=== PATIENT | male | born 1960 | race Caucasian/White ===

== ENCOUNTER 2019-09-22 10:01 | Outpatient (CLI) | payer OTHER, SELFPAY ==
--- NOTE | ~2019-09-22 | XR_ITS ---
[XR ribs BI 3V w CXR 2V ] INDICATION: Bilateral rib pain TECHNIQUE: Frontal projection of the upper ribs, frontal projection of the lower ribs, oblique projec tion of all the ribs, frontal inspiratory chest x-ray for interpretation. FINDINGS: There are no displaced rib fractures identified. There are no soft tissue abnormality see n. The lungs are clear. IMPRESSION: 1:No displaced rib fractures. Reviewed, dictated and finalized at location A.
== END 2019-09-22 10:02 | disposition home or self-care (01) ==
PROVIDERS: PCP Family Medicine; Visit Provider Nurse Practitioner Family
DX: R07.81 Pleurodynia (principal)
CPT/HCPCS: 71046; 71110

== ENCOUNTER 2019-12-07 08:02 | Outpatient (CLI) | payer OTHER, SELFPAY ==
[2019-12-07 09:29] LABS: Basophils Absolute Auto 0.1 K/mm3 (0.0-0.1); Basophils Percent Auto 1.2 % (0.2-1.2); Eosinophils Absolute Auto 0.3 K/mm3 (0-0.3); Eosinophils Percent Auto 4.2 % (0-4.4); Hematocrit 41.1 % (42.0-52.0); Hemoglobin 13.6 g/dL (14.0-18.0); Immature Granulocyte Absolute 0.02 K/mm3 (0.00-0.031); Immature Granulocyte Percent A 0.3 % (0-0.5); Lymphocytes Absolute Auto 2.75 K/mm3 (0.9-3.2); Lymphocytes Percent Auto 42.4 % (18.3-44.2); Mean Corpuscular HGB Conc 33.1 g/dl (32-36); Mean Corpuscular Hemoglobin 30.6 pg (26-34); Mean Corpuscular Volume 92.4 fl (80-100); Monocytes Absolute Auto 0.4 K/mm3 (0.1-0.6); Monocytes Percent Auto 6.8 % (2.6-8.5); Neutrophils Absolute Auto 2.9 K/mm3 (1.3-6.7); Neutrophils Percent Auto 45.1 % (45.5-73.1); Platelet Count Result 231 k/mm3 (150-375); Red Blood Count 4.45 M/mm3 (4.6-6.20); Red Cell Distribution Width 12.7 % (11.5-14.5); White Blood Count 6.5 K/mm3 (4.5-10.0)
[2019-12-07 09:43] LABS: Alanine Aminotransferase 33 U/L (4-50); Albumin Level 4.7 g/dL (3.5-5.1); Alkaline Phosphatase 57 U/L (38-126); Aspartate Amino Transferase 32 U/L (17-59); Bilirubin,Total 0.5 mg/dL (0.2-1.3); Blood Urea Nitrogen 25 mg/dL (9-20); Calcium 9.6 mg/dL (8.4-10.2); Carbon Dioxide 29 mmol/L (22-30); Chloride 101 mmol/L (98-107); Cholesterol 157 mg/dL (0-200); Estimated Glomerular Filt Rate > 60; Glucose 177 mg/dL (75-110); HDL Direct 41 mg/dL; Hemoglobin A1C 6.6 % (<5.7); Potassium 4.3 mmol/L (3.4-5.0); Sodium 139 mmol/L (137-145); Triglycerides 115 mg/dL (<150)
[2019-12-07 09:56] LABS: LDL Cholesterol Direct 82 mg/dL
[2019-12-07 10:11] LABS: Prostate Specific Antigen 0.9 ng/mL (< OR = 4.0)
[2019-12-07 11:56] LABS: MALB Creatinine Ratio < 4.7 mg/g (0-30); Microalbumin Urine Random < 6.0 mg/L (0-16.7)
== END 2019-12-07 08:03 | disposition home or self-care (01) ==
PROVIDERS: PCP Family Medicine; Visit Provider Family Medicine
DX: Z12.5 Encounter for screening for malignant neoplasm of prostate (principal); E11.9 Type 2 diabetes mellitus without complications; N28.1 Cyst of kidney, acquired; K76.0 Fatty (change of) liver, not elsewhere classified; E78.5 Hyperlipidemia, unspecified
CPT/HCPCS: 36415; 80048; 80061; 80076; 82043; 83036; 84153; 85025; G0103

== ENCOUNTER 2020-03-26 06:51 | Outpatient (NON) | payer OTHER, SELFPAY ==
[2020-03-26 17:22] LABS: SARS-CoV-2 RNA PCR Positive
== END 2020-03-26 06:52 ==
LOC: ANHCOVIDDT 06:59
PROVIDERS: PCP Family Medicine; Visit Provider Nurse Practitioner Family
DX: U07.1 COVID-19 (principal)
CPT/HCPCS: 87635; C9803; U0003

== ENCOUNTER 2020-04-18 10:17 | Observation (INO) | payer OTHER, SELFPAY ==
[2020-04-18] VITALS (8 sets, daily range): BP systolic 110–125; BP diastolic 66–79; PULSE 73–103; RESP 18; TEMP 36.7–37; O2SAT 97–99
--- NOTE | ~2020-04-18 | CT_ITS ---
EXAMINATION: CTA chest PE protocol DATE: 04/18/2020 11:55 INDICATION: Shortness of breath TECHNIQUE: Computed tomography angiography (CTA) of the chest was performed with 100 mL Omnipaque-350 intravenous contrast timed to evaluate the pulmonary arteries. Coronal maximum intensity projection 3D-reconstructions were created by the technologist. Automated exposure control and iterative reconst ruction technique were employed. Exam dose: 276.14 mGy-cm total exam DLP. COMPARISON: 09/22/2019 PA and lateral chest FINDINGS: There is diagnostic contrast enhancement of the pulmonary arteries although the peripheral pulmonary arteries are not optimally demonstrated due to motion. There is intraluminal pulmonary embo lism involving the right upper lobe. Pneumomediastinum is noted. There is a phlebolith or perhaps minimal focal pneumothorax along the med ial left upper lobe. No pneumothorax is evident otherwise. There are extensive patchy bilateral upper lower lobe and middle lobe infiltrates. Heart size is within normal range. No pericardial or pleural effusion. 2.2 cm probable upper pole left renal cyst. Normal morphology of the adrenal glands. Small sliding hiatal hernia. Degenerative changes of the cervical and thoracic spine. No suspicious osteolytic or osteoblastic les ions are noted. IMPRESSION: Right upper lobe pulmonary embolism Pneumomediastinum Extensive patchy bilateral pulmonary infiltrates Findings including right upper lobe pulmonary emphysema reported to Misael in the emergency room by Jani Hernández by telephone on 04/18/2020 at 1218 hours. Reviewed, dictated and finalized at Location A. Reviewed, dictated and finalized at location A. GUMMER IMPRESSION: Right upper lobe pulmonary embolism Pneumomediastinum Extensive patchy bilateral pulmonary infiltrates Findings including right upper lobe pulmonary emphysema reported to Misael in [facility] emergency room by Dr. Hernández by telephone on 04/18/2020 at 1218 hours.
--- NOTE | ~2020-04-18 | US_ITS ---
US venous doppler [facility] DATE: 04/19/2020 14:20 INDICATION: Right upper lobe pulmonary embolism TECHNIQUE: Real-time imaging and color flow imaging and Doppler analysis of the veins of the lower ex tremities COMPARISON: 04/10/2020 CT pulmonary scan FINDINGS: The greater saphenous veins are patent. There is spontaneous and phasic flow and normal aug mentation and color flow signal of the right common femoral, femoral, popliteal, posterior tibial vei ns. Thrombus is identified in the right peroneal vein. There is spontaneous and phasic flow and normal augmentation and color flow signal in left common fem oral artery. Thrombus however is identified in the left femoral, popliteal, posterior tibial and rukhsana delia veins. IMPRESSION: Bilateral deep venous thrombosis Reviewed, dictated and finalized at Location A. Reviewed, dictated and finalized at location A. AURANT FRONT MANAGER
--- NOTE | 2020-04-18 10:35 | ECG_ITS ---
Measurements Intervals [place] Rate: 84 P: 39 CT: 153 QRS: -11 QRSD: 86 T: 30 QT: 351 QTc: 417 Interpretive Statements SINUS RHYTHM DELAYED PRECORDIAL R/S TRANSITION BASELINE ARTIFACT- I, II, III, AVR, AVL, AVF, V1-V2 BORDERLINE ECG Electronically Signed On 04-18-2020 16:23:23 PRODUCTION GEAR CUTTER by Mario Hopper D.O.
[2020-04-18 11:07] LABS: Basophils Absolute Auto 0.1 K/mm3 (0.0-0.1); Basophils Percent Auto 1.2 % (0.2-1.2); Eosinophils Absolute Auto 0.4 K/mm3 (0-0.3); Eosinophils Percent Auto 4.1 % (0-4.4); Hematocrit 42.3 % (42.0-52.0); Hemoglobin 13.7 g/dL (14.0-18.0); Immature Granulocyte Absolute 0.15 K/mm3 (0.00-0.031); Immature Granulocyte Percent A 1.8 % (0-0.5); Mean Corpuscular HGB Conc 32.4 g/dl (32-36); Mean Corpuscular Hemoglobin 29.7 pg (26-34); Mean Corpuscular Volume 91.6 fl (80-100); Mean Platelet Volume 10.5 fl (7.4-10.4); Monocytes Absolute Auto 0.7 K/mm3 (0.1-0.6); Monocytes Percent Auto 8.3 % (2.6-8.5); Neutrophils Absolute Auto 4.9 K/mm3 (1.3-6.7); Neutrophils Percent Auto 57.6 % (45.5-73.1); Platelet Count Result 411 k/mm3 (150-375); Red Blood Count 4.62 M/mm3 (4.6-6.20); Red Cell Distribution Width 13.2 % (11.5-14.5); White Blood Count 8.5 K/mm3 (4.5-10.0)
--- NOTE | 2020-04-18 11:11 | ED.GENADULT ---
HPI - General Adult General Chief complaint: Weakness Stated complaint: weakness Time Seen by Provider: 04/18/20 10:22 Source: patient Mode of arrival: ambulatory Limitations: no limitations History of Present Illness HPI narrative: Patient 60-year-old male who presents to emergency department for evaluation of worsening dyspnea that occurred last night patient is currently on 1 L of oxygen at home has been using nebulizers and has been on this treatment since developing Covid he has been cleared by primary care for his Covid infection but continues to have dyspnea occasionally a productive cough of phlegm and requiring oxygen patient denies any chest pain lightheadedness dizziness nausea vomiting. . On arrival patient in no distress in the room resting comfortably. Symptoms are worse with activity. Patient has been given prophylactic Lovenox until the last couple of days. Patient does not have a history of PE Related Data Home Medications Medication Instructions Recorded Confirmed pantoprazole 40 mg PO QAM 04/18/20 Allergies Allergy/AdvReac Type Severity Reaction Status Date / Time Sulfa (Sulfonamide Allergy Unknown Rash Verified 04/18/20 10:24 Antibiotics) Review of Systems Review of Systems: All systems reviewed & are unremarkable except as noted in HPI and below PMFSH Past Medical History Medical History COVID-19 Fatty liver disease, nonalcoholic Hyperlipidemia, unspecified Hypoxia Leg weakness, bilateral Renal cyst Type 2 diabetes mellitus without complication, without long-term current use of insulin Family History Family History Other Diabetes mellitus Family history of pancreatic cancer Social History Social History Smoking status: Never smoker Alcohol intake: never Gender identity (if verbalized by the patient): Male Exam Narrative: Exam Narrative: GENERAL: Well-appearing, well-nourished, and in no acute distress. HEAD: Normocephalic, atraumatic. EYES: PERRLA and EOMI. ENT: Nares clear, no rhinorrhea or epistaxis. Mucous membranes moist. CHEST: Clear to auscultation. No respiratory distress. No wheezes rales or rhonchi HEART: Regular rate and rhythm. No murmur heard. Normal peripheral pulses. ABDOMEN: Soft, nontender, nondistended EXTREMITIES: Normal range of motion. No edema. SKIN: Warm, dry, no rash. NEURO: No focal deficits. Alert and oriented x3. Cranial nerves II through XII grossly intact PSYCH: Normal mood and affect. Course Consultations Consultation #1: Discussed case with Dr. Us in the radiologist who noted that the patient can be kept in [place] with a small pneumomediastinum patient is to be started on heparin and will be consulted on Date: 04/18/20 Time: 13:38 Consultation #2: Discussed case with hospitalist Alexandra who will discuss the case with her attending on whether or not the patient can be kept in [place] Date: 04/18/20 Time: 13:39 Consultation #3: Spoke with Dr. Sun cardiothoracic surgeon at [facility] in note patient can be kept at [place] does not warrant transfer Also spoke with cardiothoracic at [facility] who recommended the patient can stay as well with no further intervention needed at this time Date: 04/18/20 Time: 15:35 Vital Signs Vital signs: Vital Signs Temperature 98.2 F 04/18/20 10:20 Pulse Rate 103 H 04/18/20 10:20 Respiratory Rate 18 04/18/20 10:20 Blood Pressure 125/79 04/18/20 10:20 Pulse Oximetry 97 04/18/20 10:20 Temperature 98.2 F 04/18/20 10:20 Pulse Rate 73 04/18/20 13:49 Respiratory Rate 18 04/18/20 13:49 Blood Pressure 122/77 04/18/20 13:49 Pulse Oximetry 99 04/18/20 13:49 Medical Decision Making [facility] Narrative Medical decision making narrative: Patient was found to have pulmonary embolus pneumomediast
[2020-04-18 11:18] LABS: INR 0.9; Prothrombin Time 12.9 Seconds (11.1-14.7)
[2020-04-18 11:22] LABS: Alanine Aminotransferase 78 U/L (4-50); Albumin Level 4.1 g/dL (3.5-5.1); Alkaline Phosphatase 104 U/L (38-126); Anion Gap 6 mmol/L (8-16); Aspartate Amino Transferase 37 U/L (17-59); Bilirubin,Total 0.7 mg/dL (0.2-1.3); Blood Urea Nitrogen 20 mg/dL (9-20); Calcium 9.9 mg/dL (8.4-10.2); Carbon Dioxide 35 mmol/L (22-30); Chloride 95 mmol/L (98-107); Estimated CRCL calculation 80 ml/min; Estimated Glomerular Filt Rate > 60; Glucose 258 mg/dL (75-110); Potassium 4.3 mmol/L (3.4-5.0); Sodium 136 mmol/L (137-145)
[2020-04-18] MEDS: SODIUM CHLORIDE 0.9% IV 1,000 ML 999 ML IV CONT (11:32)
[2020-04-18 11:33] LABS: NT Pro B Type Natriuretic Pept 17 PG/ML (5-100); Troponin I < 0.012 ng/mL (0.000-0.034)
[2020-04-18 12:49] LABS: Alveolar/Arterial O2 Gradient 46.7 mmHg; Base Excess ABG 5.2 mEq/l (+/-2.0); Carboxyhemoglobin 0.8 % THb (0-2.0); Fractional Inspired Oxygen 24 %; HCO3 ABG 29.8 mEq/l (22.0-26.0); Methemoglobin ABG 0.2 %THb (0-1.5); Oxygen Content ABG 16.3 %vol (16.0-22.0); Oxygen Saturation ABG 95.1 % (95.0-100.0); Oxyhemoglobin 93.8 % THb (90.0-100.0); PO2 ABG 72.1 mmHg (80.0-100.0); Reduced Hemoglobin 5.2 %THb (0-5.0); Total Hemoglobin 12.3 g/dL (12.0-18.0); pH ABG 7.449 (7.350-7.450)
[2020-04-18 12:50] LABS: Device NASAL CANNULA; Site Drawn LEFT BRACHIAL
[2020-04-18] MEDS: HEPARIN SODIUM 5,000 UNITS/ML VIAL 6000 UNITS IV PUSH (13:33)
[2020-04-18] MEDS: HEPARIN SOD/D5W 100 UNITS/ML 25,000 UNITS/250 ML BAG 14 UNITS IV CONT (13:35)
[2020-04-18 13:44] LABS: Glucose Point of Care 138 (65-105)
--- NOTE | 2020-04-18 16:00 | PM.IMHP ---
H&P: HPI History of Present Illness Date/Time: 04/18/20 16:00 Chief complaint: Shortness of breath. Narrative: Rosey Hollingsworth is a 60-year-old male with type 2 diabetes mellitus and hypertension who presented to the emergency department earlier today via private vehicle from for evaluation of shortness of breath. On March 23, 2020 he developed URI symptoms including sore throat, nonproductive cough, congestion, and fever and he tested positive for COVID-19 on 03/26/2020. He had a virtual visit with his primary care provider on 04/07 with reports that he was still feeling bad and was becoming increasingly hypoxic, with an SpO2 between 83 to 85%. He was given a prescription for home oxygen and was started on dexamethasone and Lovenox 40 mg q.day for 7 days. He finished taking the Lovenox I believe yesterday and he has is oxygen weaned down to 1 L. Unfortunately last night he had what sounds like a pretty significant coughing fit where he became increasingly short of breath with hypoxia. He spoke with his doctor today and they thought perhaps he had a mucus plug but they referred him to the emergency department to rule out blood clot. He was indeed found to have a right upper lobe pulmonary embolism with findings of pneumomediastinum as well, and he is being admitted in this setting. The ED provider spoke with a cardiothoracic surgeon in [place] regarding his case, and they note having multiple patient's with pneumomediastinum secondary to COVID and feel this is self-limiting and had no other recommendations. At the time my evaluation he feels better and is not short of breath although he is still frustrated that he continues to have a cough which is productive of clear phlegm. He no longer has fever, chills, or sweats. He denies chest pain and pleuritic pain. No palpitations, orthopnea, PND, or lower extremity edema. He denies calf pain and tenderness. No history of venous thromboembolism. No nausea, vomiting, or diarrhea. Review of Systems Review of Systems: Narrative: Twelve systems were reviewed with pertinent positives and negatives as per HPI. Except as documented, all other systems were reviewed and are negative. [facility] Past Medical History Medical History (Updated 04/18/20 @ 23:37 by Alexandra Bass PA-C) COVID-19 (~03/26/20) Fatty liver disease, nonalcoholic Gastro-esophageal reflux Hyperlipidemia, unspecified Hypertension Renal cyst Type 2 diabetes mellitus without complication, without long-term current use of insulin Surgical History Surgical History (Updated 04/18/20 @ 23:34 by Alexandra Bass PA-C) History of sinus surgery History of tonsillectomy Family History Family History Other Diabetes mellitus Family history of pancreatic cancer Social History Social History (Updated 04/18/20 @ 23:34 by Alexandra Bass PA-C) Social History: Surrogate decision maker: Rebecca Hollingsworth, . Code status: Full code. Smoking packs per day: 2 Smoking cigarettes per day: 40.0 Years smoked: 20 Smoking pack-years: 40.00 Smoking status: Former smoker Tobacco type: cigarettes Second hand tobacco smoke exposure: No Alcohol intake: never Substance use: never Additional living arrangements comments: Lives in [place] with his . 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 Gender identity (if verbalized by the patient): Male Sexual Orientation (if Verbalized by the Patient): Straight or Heterosexual Spiritual care concerns: No Meds Home Medications and Allergies Home Medications Medication Instructions Recorded Confirmed Type diclofenac sodium 75 mg 75 mg PO BID #180 tablet 01/02/20 04/18/20 Rx tablet,delayed release simvastatin 40 mg tablet 40 mg PO DAILY #90 tablet 01/02/20 04/18/20 Rx albuterol sulfate 90 mcg/actuation 1 inh INHALATION Q4H PRN #8.5 g 03/30/20 04/18/20 Rx aerosol i
--- NOTE | 2020-04-18 16:52 | PC.NURSE ---
This patient, Rosey Hollingsworth, was admitted to 3 [facility] Surg Room 323-01. Patient/family oriented to hospital policies and general routines including ID bracelet, bed and alarms, visiting hours, pain management, procedures, bathroom and other care routines, personal items, smoking policy, room service/diet, and visiting hours. Information on how to activate the Rapid Response Team has been discussed. Patient/Family are encouraged to report perceived risks to care and to ask questions if they do not understand what they are told or what they should do.
[2020-04-18 19:58] LABS: Glucose Point of Care 235 (65-105)
[2020-04-18 20:30] LABS: Partial Thromboplastin Time 76.8 SECONDS (22.3-36.8)
[2020-04-19] VITALS (7 sets, daily range): BP systolic 101–112; BP diastolic 58–69; PULSE 68–81; RESP 18–20; TEMP 36.3–37.1; O2SAT 1–100
[2020-04-19 03:36] LABS: Basophils Absolute Auto 0.1 K/mm3 (0.0-0.1); Basophils Percent Auto 1.5 % (0.2-1.2); Eosinophils Absolute Auto 0.5 K/mm3 (0-0.3); Eosinophils Percent Auto 5.5 % (0-4.4); Hematocrit 36.7 % (42.0-52.0); Hemoglobin 11.8 g/dL (14.0-18.0); Immature Granulocyte Absolute 0.15 K/mm3 (0.00-0.031); Immature Granulocyte Percent A 1.8 % (0-0.5); Lymphocytes Absolute Auto 3.24 K/mm3 (0.9-3.2); Lymphocytes Percent Auto 37.9 % (18.3-44.2); Mean Corpuscular HGB Conc 32.2 g/dl (32-36); Mean Corpuscular Hemoglobin 29.4 pg (26-34); Mean Corpuscular Volume 91.5 fl (80-100); Mean Platelet Volume 10.7 fl (7.4-10.4); Monocytes Absolute Auto 0.8 K/mm3 (0.1-0.6); Monocytes Percent Auto 9.3 % (2.6-8.5); Neutrophils Absolute Auto 3.8 K/mm3 (1.3-6.7); Platelet Count Result 354 k/mm3 (150-375); Red Blood Count 4.01 M/mm3 (4.6-6.20); Red Cell Distribution Width 13.1 % (11.5-14.5); White Blood Count 8.6 K/mm3 (4.5-10.0)
[2020-04-19 03:41] LABS: Anion Gap 0 mmol/L (8-16); Blood Urea Nitrogen 17 mg/dL (9-20); Calcium 9.1 mg/dL (8.4-10.2); Carbon Dioxide 37 mmol/L (22-30); Chloride 99 mmol/L (98-107); Estimated CRCL calculation 81 ml/min; Estimated Glomerular Filt Rate > 60; Glucose 165 mg/dL (75-110); Magnesium 2.2 mg/dL (1.6-2.3); Partial Thromboplastin Time 77.9 SECONDS (22.3-36.8); Potassium 4.4 mmol/L (3.4-5.0); Sodium 136 mmol/L (137-145)
[2020-04-19 07:55] LABS: Glucose Point of Care 177 (65-105)
[2020-04-19] MEDS: HEPARIN SOD/D5W 100 UNITS/ML 25,000 UNITS/250 ML BAG 14 UNITS IV CONT (08:56)
[2020-04-19] MEDS: SIMVASTATIN 20 MG TABLET 40 MG PO (09:01)
[2020-04-19] MEDS: DICLOFENAC SOD 75 MG TABLET.EC PO ×2 (09:02→17:01)
[2020-04-19] MEDS: PANTOPRAZOLE 40 MG TABLET PO (09:02)
[2020-04-19 10:41] LABS: Hemoglobin A1C 7.3 % (<5.7)
--- NOTE | 2020-04-19 11:35 | PM.IMPN ---
Progress Note: A&P Assessment and Plan (1) Pulmonary embolism on right: Code(s): I26.99 - Other pulmonary embolism without acute cor pulmonale Status: Acute Assessment and Plan: Transition from heparin gtt to Eliquis. Discussed case with Dr Luong, cardiology. CARSON lower extremity DVTs identified. Echocardiogram has been ordered. (2) COVID-19: Onset Date: ~03/26/20 Code(s): U07.1 - COVID-19 Status: Acute Assessment and Plan: COVID + 03/26/20. Has been working with PCP for outpatient treatment including home oxygen (1L/min day and night), dexamethasone, and Lovenox 40mg daily. Patient continues with hypoxia and nonproductive cough. (3) Pneumomediastinum: Code(s): J98.2 - Interstitial emphysema Status: Acute Assessment and Plan: Noted on imaging. ED provider consulted CT surgery at tertiary care who recommended this is likely to be self-limiting and given his hemodynamic stability, does not require further intervention at this time unless his status were to change. (4) Bilateral pulmonary infiltrates on chest x-ray: Code(s): R91.8 - Other nonspecific abnormal finding of lung field Status: Acute Assessment and Plan: Suspect secondary to COVID-19. See above. (5) Type 2 diabetes mellitus without complication, without long-term current use of insulin: Code(s): E11.9 - Type 2 diabetes mellitus without complications Status: Acute Assessment and Plan: Hgb A1c 7.3%. His home metformin is held on the basis of having contrast for CTA. Monitor with Accu-cheks and cover with SSI. Subjective Date/time seen: 04/19/20 11:15 Interval history: Mr. Hollingsworth is a pleasant 60yo M with acute respiratory failure, recent COVID-19 pneumonia admitted for pulmonary embolism. He has significant nonproductive cough. He denies chest pain. Denies shortness of breath at rest but walking gets him winded and fatigued easily. No nausea or vomiting. Review of Systems Review of Systems: All systems reviewed & are unremarkable except as noted in HPI and below Exam Narrative: Exam Narrative: General: Male resting comfortably sitting in bed in no acute distress. HEENT: Normocephalic, EOMI, oral mucosa moist. Cardiovascular: Rate and rhythm are regular. Respiratory: Decreased breath sounds CARSON. Respirations even and nonlabored. Nonproductive coughing fit noted. Abdomen: Soft, non-tender, non-distended, bowel sounds present. Extremities: Peripheral pulses intact. No edema, erythema. Negative Dalton's sign CARSON. Neuro: No focal neurological deficits. Speech is clear. Objective Data Vital Signs Vital Signs: Last Vital Signs Temp 97.9 F 04/19/20 16:00 Pulse 70 04/19/20 16:00 Resp 18 04/19/20 16:00 BP 101/63 04/19/20 16:00 Pulse Ox 99 04/19/20 16:00 Intake/Output Intake/Output: Intake & Output 04/16/20 04/17/20 04/18/20 04/19/20 23:59 23:59 23:59 23:59 Intake Total 1460 650 Output Total 800 550 Balance 660 100 Meds/Results Medications: Active Medications Generic Name Dose Route Start Last Admin Trade Name Freq PRN Reason Stop Dose Admin Albuterol 1 puff 04/18/20 21:14 Albuterol Sulfate (*Sp) Aerosol 1 Puff INHALATION Q4H PRN shortness of breath or wheezing Benzonatate 200 mg 04/18/20 21:14 Benzonatate 100 Mg Capsule PO TID PRN cough Dextrose 12.5 gm 04/18/20 23:41 Dextrose 50% 25 Gm/50 Ml Syringe IV PUSH PRN PRN Hypoglycemia Protocol Diclofenac Sodium 75 mg 04/19/20 08:00 04/19/20 09:02 Diclofenac Sod 75 Mg Tablet.Ec PO 75 mg BIDWM EMMANUEL Administration Glucagon 1 mg 04/18/20 23:41 Glucagon For Inj 1 Mg Vial IM PRN PRN Hy
--- NOTE | 2020-04-19 12:10 | PM.CNCAR ---
Assessment and Plan Assessment and plan (1) Pulmonary embolism on right: Code(s): I26.99 - Other pulmonary embolism without acute cor pulmonale Status: Acute Assessment and Plan: Likely due to underlying coagulopathy associated with COVID He is hemodynamically stable and his oxygen requirements are stable and probably mostly due to viral pneumonia with COVID as suggested by CT with bilateral patchy infiltrates No evidence of right heart rate strain on CT He is on IV hepairin. Will make transition to Eliquis 10 mg BID for a week then 5 mg BID for at least 6 months (2) COVID-19: Code(s): U07.1 - COVID-19 Status: Acute Assessment and Plan: Management per primary team (3) Type 2 diabetes mellitus without complication, without long-term current use of insulin: Code(s): E11.9 - Type 2 diabetes mellitus without complications Status: Acute History of Present Illness History of Present Illness Consult date/time: 04/19/20 12:10 60-y/o male with no known cardiac history, risk factors of DM and HLD who presented with shortness of breath and cough He tested positive for COVID earlier this month and has been managed by PCP for which he was prescribed home oxygen. His symptoms persists and he developed episode of cough and what appears to be associated resp distress for which he presented to ER. He had CT of chest that revealed extensive patchy bilateral infiltrates consistent with COVID but it also showed Pneumomediastinum and right upper lobe pulmonary embolism. He was started on IV heparin. Interestingly he was already on Lovenox at home prescribed per PCP (prophylactic dose). CT surgery in outside facility were contacted and recommended supportive care for underlying COVID. At time of my evaluation patient was feeling fine. He is on 2 liters of oxygen via nasal cannula. He denies chest pain. He has dyspnea and cough, both slowly improving. EKG shows sinus rhythm at HR 84, low voltage. He quit smoking ~ 8-10 years ago. Reason For Visit: Shortness of breath. Review of Systems Review of Systems: All systems reviewed & are unremarkable except as noted in HPI and below Constitutional: Constitutional: Denies fatigue and Denies headache(s) Eyes: Eyes: Denies blurry vision ENT: Reports Normal hearing present and Denies headache(s) Cardiovascular: Cardiovascular: Denies chest pain, Denies diaphoresis, Denies pedal edema, Denies leg edema, Denies lightheadedness, Denies palpitations and Denies dyspnea Respiratory: Respiratory: Denies cough and Denies dyspnea Gastrointestinal: Gastrointestinal: Denies abdominal pain Musculoskeletal: Musculoskeletal: Denies back pain Neurologic: Reports Normal hearing present and Denies headache(s) Psychiatric: Psychiatric: Denies anxiety Endocrine: Endocrine: Denies fatigue and Denies palpitations [facility] Past Medical History Medical History (Updated 04/18/20 @ 23:37 by Alexandra Bass PA-C) COVID-19 (~03/26/20) Fatty liver disease, nonalcoholic Gastro-esophageal reflux Hyperlipidemia, unspecified Hypertension Renal cyst Type 2 diabetes mellitus without complication, without long-term current use of insulin Surgical History Surgical History (Updated 04/18/20 @ 23:34 by Alexandra Bass PA-C) History of sinus surgery History of tonsillectomy Family History Family History Other Diabetes mellitus Family history of pancreatic cancer Social History Social History (Updated 04/18/20 @ 23:34 by Alexandra Bass PA-C) Social History: Surrogate decision maker: Rebecca Hollingsworth, . Code status: Full code. Smoking packs per day: 2 Smoking cigarettes per day: 40.0 Years smoked: 20 Smoking pack-years: 40.00 Smoking status: Former smoker Tobacco type: cigarettes Second hand tobacco smoke exposure: No Alcohol intake: never Substance use:
[2020-04-19 12:42] LABS: Glucose Point of Care 179 (65-105)
[2020-04-19] MEDS: APIXABAN 5 MG TABLET 10 MG PO ×2 (17:00→21:01)
[2020-04-19 17:08] LABS: Glucose Point of Care 163 (65-105)
[2020-04-19] MEDS: guaiFENesin/DEXTROMETHORPHAN 10 ML UDC PO (21:04)
[2020-04-19] MEDS: BENZONATATE 100 MG CAPSULE 200 MG PO (21:15)
[2020-04-19 21:31] LABS: Glucose Point of Care 245 (65-105)
[2020-04-20] VITALS: BP 103/62; PULSE 59; PULSE 66; RESP 18; TEMP 36.8; O2SAT 100
--- NOTE | 2020-04-20 | ECHO_ITS ---
Patient Info Name: Rosey Hollingsworth Age: 60 years : 1960 Gender: Male Ht: 66 in Wt: 167 lbs BSA: 1.89 m2 HR: 88 bpm BP: 111 / 74 mmHg Heart Rhythm: Sinus Rhythm Technical Quality: Good Exam Date: 04/20/2020 12:09 PM Exam Location: [facility] Pulmonary Patient Status: Inpatient Admit Date: 04/18/2020 Staff Ordering Physician: Zak Lai MD Developmental Psychologist: Bolivar Joy RDCS Attending Provider: Maranda Kerr MD Exam Type: CA echo doppler color flow Study Info Indications R06.02 - Shortness of breath Complete two-dimensional, color flow and Doppler transthoracic echocardiogram is performed. Strain analysis performed. History/Risk Factors Covid19+; SOB, pulmonary embolisms, HTN, Dm2. Summary 1. Complete two-dimensional, color flow and Doppler transthoracic echocardiogram is performed. 2. Left ventricular systolic function is normal, estimated at 60-65%. 3. There is mildly increased left ventricular wall thickness. 4. Normal inferior vena cava with >50% collapse upon inspiration consistent with normal right atrial pressure, 5 mmHg. 5. There is mild tricuspid valve regurgitation. 6. No pulmonary hypertension, estimated pulmonary arterial systolic pressure is 32 mmHg. Left Ventricle Left ventricular chamber dimension is normal. Left ventricular systolic function is normal, estimated at 60-65%. There is mildly increased left ventricular wall thickness. Left ventricular septal wall motion is normal. The left ventricular diastolic function is normal. Right Ventricle Right ventricular chamber dimension is normal. Right ventricular systolic function is normal. Left Atria Left atrial chamber dimension is normal. Right Atria Right atrial chamber dimension is normal. Aortic Valve The aortic valve is trileaflet. There is no aortic valve sclerosis. There is no aortic valve stenosis. There is no aortic valve regurgitation. Pulmonic Valve The pulmonic valve is normal. There is no pulmonic valve stenosis. There is no pulmonic regurgitation. Mitral Valve The mitral valve has normal leaflets. There is no mitral valve stenosis. There is no mitral valve regurgitation. Tricuspid Valve The tricuspid valve leaflets are normal. There is no significant tricuspid valve stenosis. There is mild tricuspid valve regurgitation. No pulmonary hypertension, estimated pulmonary arterial systolic pressure is 32 mmHg. Pericardium/Pleural The pericardium appears normal. There is no pericardial effusion. Inferior Vena Cava Normal inferior vena cava with >50% collapse upon inspiration consistent with normal right atrial pressure, 5 mmHg. Aorta The aortic root size at the sinus of Valsalva is normal. The prox ascending aorta size is normal. Left Ventricular Outflow Tract Name Value Normal LVOT 2D LVOT Diameter 2.1 cm LVOT Doppler LVOT Peak Gradient 4 mmHg LVOT Mean Gradient 2 mmHg LVOT VTI 17 cm LVOT VTI/AV VTI Ratio 0.8 LVOT Stroke Volum
[2020-04-20 04:00] VITALS: BP 96/54; PULSE 64; PULSE 71; RESP 18; TEMP 36.6; O2SAT 99
--- NOTE | 2020-04-20 04:59 | PC.NURSE ---
0410 BRIM STIFFENER REPORTED LOW BP 90s/50s. MANUAL BP CHECKED. 96/54 BP OBTAINED FROM THE RIGHT UPPER ARM. ASYMPTOMATIC. 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 CONTINUING TO MONITOR PT.
[2020-04-20 06:03] LABS: Basophils Absolute Auto 0.1 K/mm3 (0.0-0.1); Basophils Percent Auto 1.6 % (0.2-1.2); Eosinophils Absolute Auto 0.4 K/mm3 (0-0.3); Eosinophils Percent Auto 6.3 % (0-4.4); Hematocrit 36.2 % (42.0-52.0); Hemoglobin 11.6 g/dL (14.0-18.0); Immature Granulocyte Absolute 0.06 K/mm3 (0.00-0.031); Lymphocytes Absolute Auto 2.26 K/mm3 (0.9-3.2); Lymphocytes Percent Auto 36.6 % (18.3-44.2); Mean Corpuscular Hemoglobin 28.9 pg (26-34); Mean Platelet Volume 10.6 fl (7.4-10.4); Monocytes Absolute Auto 0.7 K/mm3 (0.1-0.6); Monocytes Percent Auto 11.7 % (2.6-8.5); Neutrophils Absolute Auto 2.7 K/mm3 (1.3-6.7); Neutrophils Percent Auto 42.8 % (45.5-73.1); Platelet Count Result 305 k/mm3 (150-375); Red Blood Count 4.02 M/mm3 (4.6-6.20); Red Cell Distribution Width 12.9 % (11.5-14.5); White Blood Count 6.2 K/mm3 (4.5-10.0)
[2020-04-20 06:17] LABS: Potassium 4.2 mmol/L (3.4-5.0)
[2020-04-20 06:19] LABS: Anion Gap 0 mmol/L (8-16); Blood Urea Nitrogen 15 mg/dL (9-20); Calcium 9.4 mg/dL (8.4-10.2); Carbon Dioxide 35 mmol/L (22-30); Chloride 103 mmol/L (98-107); Estimated CRCL calculation 81 ml/min; Estimated Glomerular Filt Rate > 60; Glucose 151 mg/dL (75-110); Magnesium 2.2 mg/dL (1.6-2.3); Sodium 138 mmol/L (137-145)
[2020-04-20 08:00] VITALS: BP 111/74; PULSE 76; PULSE 98; RESP 18; TEMP 36.2; O2SAT 90
[2020-04-20] MEDS: APIXABAN 5 MG TABLET 10 MG PO (08:59)
[2020-04-20] MEDS: SIMVASTATIN 20 MG TABLET 40 MG PO (08:59)
[2020-04-20] MEDS: PANTOPRAZOLE 40 MG TABLET PO (08:59)
[2020-04-20] MEDS: BENZONATATE 100 MG CAPSULE 200 MG PO (09:03)
[2020-04-20] MEDS: guaiFENesin/DEXTROMETHORPHAN 10 ML UDC PO (09:03)
[2020-04-20 09:22] LABS: Glucose Point of Care 157 (65-105)
[2020-04-20 12:00] VITALS: BP 101/63; PULSE 57; PULSE 75; RESP 21; TEMP 36.6; O2SAT 93
[2020-04-20 13:00] LABS: Glucose Point of Care 255 (65-105)
[2020-04-20] MEDS: INSULIN ASPART (*BKC) 100 UNITS/ML SUB-Q ×2 (13:12→17:53)
--- NOTE | 2020-04-20 15:40 | PM.PNCARD ---
Progress Note: A&P Assessment and Plan (1) Pulmonary embolism on right: Code(s): I26.99 - Other pulmonary embolism without acute cor pulmonale Status: Acute Assessment and Plan: Likely due to underlying coagulopathy associated with COVID He is hemodynamically stable and his oxygen requirements are stable and probably mostly due to viral pneumonia with COVID as suggested by CT with bilateral patchy infiltrates No evidence of right heart rate strain on CT He had echocardiogram showed normal left ventricular systolic function, mild tricuspid valve regurgitation but no evidence of right ventricular enlargement. He seems to be stable from cardiac standpoint to be discharged home, he is to stay on Eliquis 10 mg twice daily for 6 more days, followed by 5 mg twice daily for 6 month (2) COVID-19: Code(s): U07.1 - COVID-19 Status: Acute Assessment and Plan: Management per primary team (3) Type 2 diabetes mellitus without complication, without long-term current use of insulin: Code(s): E11.9 - Type 2 diabetes mellitus without complications Status: Acute Assessment and Plan: He seems to be stable from cardiac standpoint to be discharged home, please have patient follow-up with me in 2 weeks Subjective Date/time seen: 04/20/20 15:40 He feels better today, still with occasional shortness of breath and occasional cough but no chest pain. I reviewed his CT of the chest, and I reviewed his echocardiogram, he seems to have right upper pulmonary artery PE, but no evidence of right ventricular enlargement or right ventricular strain. He seems to be clinically better now Exam Const: General: no acute distress Eyes: Sclera: sclerae normal Neck: Neck: no JVD Carotids: no bruits Resp: Effort & Inspection: normal respiratory effort Auscultation: clear to auscultation bilaterally Cardio: Rate: regular rate and not tachycardic Rhythm: regular rhythm Heart sounds: no gallops, no murmurs and no rubs Skin: General skin exam: normal color Neuro: Cranial nerves: Yes Normal hearing present Speech: normal speech Extrem: General: normal to inspection and no edema Psych: Affect: normal affect Objective Data Vital Signs Vital Signs: Vital Signs - 24 hr 04/19/20 16:00 04/19/20 20:00 04/20/20 00:00 Temperature 36.6 C 36.7 C 36.8 C Pulse Rate 70 68 59 L Respiratory Rate 18 18 18 Blood Pressure 101/63 101/60 103/62 Pulse Oximetry 99 98 100 04/20/20 04:00 04/20/20 08:00 04/20/20 12:00 Temperature 36.6 C 36.2 C L 36.6 C Pulse Rate 64 76 57 L Respiratory Rate 18 18 21 H Blood Pressure 96/54 L 111/74 101/63 Pulse Oximetry 99 90 93 Intake/Output Intake/Output: Intake & Output 04/17/20 04/18/20 04/19/20 04/20/20 23:59 23:59 23:59 23:59 Intake Total 1460 2120 1320 Output Total 800 1325 700 Balance 660 058 620 Meds/Results Medications: Active Medications Generic Name Dose Route Start Last Admin Trade Name Freq PRN Reason Stop Dose Admin Albuterol 1 puff 04/18/20 21:14 Albuterol Sulfate (*Sp) Aerosol 1 Puff INHALATION Q4H PRN shortness of breath or wheezing Apixaban 10 mg 04/19/20 12:45 04/20/20 08:59 Apixaban 5 Mg Tablet PO 04/25/20 21:01 10 mg Q12HR EMMANUEL Administration Apixaban 5 mg 04/26/20 09:00 Apixaban 5 Mg Tablet PO 05/10/20 21:01 Q12HR EMMANUEL Benzonatate 200 mg 04/18/20 21:14 04/20/20 09:03 Benzonatate 100 Mg Capsule PO 200 mg TID PRN Administration cough Dextrose 12.5 gm 04/18/20 23:41 Dextrose 50% 25 Gm/50 Ml Syringe IV PUSH PRN PRN Hypoglycemia Protocol Diclofenac Sodium 75 mg 04/19/20 08:00 04/19/20 17:01 Diclofenac Sod 75 Mg Tablet.Ec PO 75 mg BIDWM EMMANUEL Administration Glucagon 1 mg 04/18/20 23:41 Glucagon For Inj 1 Mg Vial IM PRN PRN Hypoglycemia Protocol Glucose 15 gm 04/18/20 23:41 Glucose Oral Gel 15 Gm Of Glucse In 37.5 Gm Tube
--- NOTE | 2020-04-20 15:49 | PM.DS ---
DS: Admitting Diagnosis Admitting Diagnosis Admitting Diagnosis: Shortness of breath. DS: Discharge Diagnosis Discharge Diagnosis (1) Pulmonary embolism on right: Code(s): I26.99 - Other pulmonary embolism without acute cor pulmonale Status: Acute Assessment and Plan: Date of Service 04/20/20 Mr. Hollingsworth is a very pleasant 60yo M with history of type 2 diabetes who presented to the ED for evaluation of shortness of breath. Symptoms began 03/23/20 including sore throat, nonproductive cough, and fever; tested positive for COVID-19 on 03/26/20. He has been followed closely by PCP and had been prescribed home supplemental oxygen (1L/min) as well as dexamethasone and Lovenox x 1 week 04/08 through 04/15. Had been reasonably stable at home up until 2 days prior to this admission where he describes significant coughing fits leaving him very short of breath. He had been using a wheelchair he had at home to travel to the bathroom from living room. CTA chest demonstrated right upper lobe PE, pneumomediastinum, and extensive bilateral infiltrates. ED provider discussed with [facility] cardiothoracic surgery, who recommended they had been seeing many COVID cases with pneumomediastinum and advised this would be self-limiting and since he was hemodynamically stable, would only warrant further intervention if his status should worsen. LE dopplers demonstrated CARSON DVTs detailed below. Mr. Hollingsworth was started on a Heparin drip and transitioned to oral Eliquis. He was seen by Dr Lai, cardiology. Echocardiogram without evidence of right heart strain, report detailed below. He is hemodynamically stable for discharge home on 04/20/20 with short-interval follow up with PCP and Dr Lai. 04/19 transition from heparin gtt to Eliquis. CARSON lower extremity DVTs identified, see below. Suspect secondary to hypercoagulability with COVID infection plus decreased activity due to same. (2) COVID-19: Onset Date: ~03/26/20 Code(s): U07.1 - COVID-19 Status: Acute Assessment and Plan: COVID + 03/26/20. Has been working with PCP for outpatient treatment including home oxygen (1L/min day and night), dexamethasone, and Lovenox x 1 week which he finished a few days prior to arrival. Patient continues with hypoxia and nonproductive cough. PNA demonstrated on CTA. (3) Pneumomediastinum: Code(s): J98.2 - Interstitial emphysema Status: Acute Assessment and Plan: Noted on imaging. ED provider consulted CT surgery at tertiary care who recommended this is likely to be self-limiting and given his hemodynamic stability, does not require further intervention at this time unless his status were to change. (4) Bilateral pulmonary infiltrates on chest x-ray: Code(s): R91.8 - Other nonspecific abnormal finding of lung field Status: Acute Assessment and Plan: Suspect secondary to COVID-19. See above. (5) Type 2 diabetes mellitus without complication, without long-term current use of insulin: Code(s): E11.9 - Type 2 diabetes mellitus without complications Status: Acute Assessment and Plan: Hgb A1c 7.3%. His home metformin is held due to contrast for CTA. Monitor with Accu-cheks and cover with SSI. He is on SSI recently at home with elevated sugars from dexamethasone. DS: Summary Time Spent with Patient Time attestation: Total time spent providing and/or coordinating discharge services: 35 minutes Exam Narrative: Exam Narrative: General: Male resting comfortably sitting in bed in no acute distress. HEENT: Normocephalic, EOMI, oral mucosa moist. Cardiovascular: Rate and rhythm are regular. Respiratory: Decreased breath sounds CARSON. Res
[2020-04-20 16:00] VITALS: BP 100/61; PULSE 83; PULSE 84; RESP 18; TEMP 36.5; O2SAT 100
== END 2020-04-20 19:15 | disposition home or self-care (01) ==
LOC: ANHED 15:37 → ANH3MEDSUR 16:28
PROVIDERS: Emergency Medicine Emergency Medical Services; Family Medicine; Internal Medicine; Physician Assistant; Admitting Provider Internal Medicine; Emergency Provider Emergency Medicine; PCP Family Medicine; Visit Provider Student in an Organized Health Care Education/Training Program
DX: I26.99 Other pulmonary embolism without acute cor pulmonale (principal); U07.1 COVID-19; J98.2 Interstitial emphysema; R91.8 Other nonspecific abnormal finding of lung field; R53.1 Weakness; R06.02 Shortness of breath; E78.5 Hyperlipidemia, unspecified; E11.9 Type 2 diabetes mellitus without complications; K76.0 Fatty (change of) liver, not elsewhere classified; Z87.891 Personal history of nicotine dependence; Z79.4 Long term (current) use of insulin
CPT/HCPCS: 36415; 36600; 71275; 80048; 80053; 82375; 82805; 83036; 83050; 83735; 83880; 84484; 85025; 85610; 85730; 93005; 93306; 93970; 96361; 96365; 96366; 99285; A9270; G0378; J1644; J1815; J7030; Q9967

== ENCOUNTER 2020-05-08 14:46 | Outpatient (CLI) | payer OTHER, SELFPAY ==
[2020-05-08 15:14] LABS: Hematocrit 38.8 % (42.0-52.0); Hemoglobin 12.5 g/dL (14.0-18.0); Mean Corpuscular HGB Conc 32.2 g/dl (32-36); Mean Corpuscular Hemoglobin 28.9 pg (26-34); Mean Corpuscular Volume 89.6 fl (80-100); Mean Platelet Volume 10.9 fl (7.4-10.4); Platelet Count Result 288 k/mm3 (150-375); Red Blood Count 4.33 M/mm3 (4.6-6.20); Red Cell Distribution Width 13.2 % (11.5-14.5); White Blood Count 7.7 K/mm3 (4.5-10.0)
[2020-05-08 15:25] LABS: Anion Gap 4 mmol/L (8-16); Blood Urea Nitrogen 15 mg/dL (9-20); Calcium 9.8 mg/dL (8.4-10.2); Carbon Dioxide 32 mmol/L (22-30); Chloride 102 mmol/L (98-107); Estimated Glomerular Filt Rate > 60; Glucose 272 mg/dL (75-110); Sodium 138 mmol/L (137-145)
== END 2020-05-08 14:47 | disposition home or self-care (01) ==
LOC: ANHLAB 14:47
PROVIDERS: PCP Family Medicine; Visit Provider Physician Assistant Medical
DX: U07.1 COVID-19 (principal); Z51.81 Encounter for therapeutic drug level monitoring; Z79.899 Other long term (current) drug therapy
CPT/HCPCS: 36415; 80048; 85027

== ENCOUNTER 2020-05-12 12:40 | Outpatient (CLI) | payer OTHER, SELFPAY ==
--- NOTE | ~2020-05-12 | CT_ITS ---
EXAMINATION: CTA chest PE protocol DATE: 05/12/2020 13:42 INDICATION: Pulmonary emboli without acute cor pulmonale. COVID-19 positive on 03/26/2020. TECHNIQUE: Computed tomography angiography (CTA) of the chest was performed with 100 mL Omnipaque-350 intravenous contrast timed to evaluate the pulmonary arteries. Coronal maximum intensity projection 3D-reconstructions were created by the technologist. Automated exposure control and iterative reconst ruction technique were employed. The dose-length product was 293.01 mGy-cm. COMPARISON: Chest CT 04/18/2020 FINDINGS: There is mild emphysema. There are groundglass and airspace opacities throughout the lungs bilaterally with architectural distortion. There are small pleural effusions. Cardiomegaly is noted. No pericardial effusion. There is no pulmonary embolus. There is mild mediastinal and bilateral hilar lymphadenopathy. There is severe thoracic spondylosis. IMPRESSION: 1. No pulmonary embolus. 2. Diffuse lung disease with slight improvement, consistent with COVID-19 pneumonia. 3. Mild emphysema. 4. Small pleural effusions, new from 04/10/2020. 5. Mild bilateral hilar lymphadenopathy, likely reactive. Reviewed, dictated and finalized at location A. IAL DELIVERY CARRIER IMPRESSION: 1. No pulmonary embolus. 2. Diffuse lung disease with slight improvement, consistent with COVID-19 pneum onia. 3. Mild emphysema. 4. Small pleural effusions, new from 04/10/2020. 5. Mild bilateral hilar lymphadenopathy, likely reactive.
--- NOTE | ~2020-05-12 | US_ITS ---
EXAMINATION: US venous doppler [facility] EXAM DATE: 05/12/2020 13:29 INDICATION: Pulmonary emboli. History of COVID. Anticoagulated. TECHNIQUE: Multiple grayscale, color flow and Doppler images of the left lower extremity deep venous system obtained and reviewed. Comparison is made to prior examination from 04/19/2020. FINDINGS: LEFT SIDE Common femoral: -------- Normal. Profunda femoral: ------- Normal. Femoral: Normal (previously thrombosed). Popliteal: Normal (previously thrombosed). Posterior tibial: ---------Persistent thrombus. Peroneal: Persistent thrombus. Gastrocnemius: Not visualized. Soleus: Not visualized. Greater saphenous: ----- Normal. Lesser saphenous: ------ Not visualized. IMPRESSION: 1. Resolved left femoral, popliteal DVT. Persistent posterior tibial and peroneal DVT. Reviewed, dictated and finalized at location B. R MACHINE OPERATOR IMPRESSION: 1. Resolved left femoral, popliteal DVT. Persistent posterior tibial and peron eal DVT.
== END 2020-05-12 12:41 | disposition home or self-care (01) ==
PROVIDERS: PCP Family Medicine
DX: I26.99 Other pulmonary embolism without acute cor pulmonale (principal); J98.4 Other disorders of lung; J43.9 Emphysema, unspecified; J90 Pleural effusion, not elsewhere classified; R59.0 Localized enlarged lymph nodes
CPT/HCPCS: 71275; 93970; Q9967

== ENCOUNTER 2020-05-27 15:13 | Outpatient (CLI) | payer OTHER, SELFPAY ==
--- NOTE | ~2020-05-27 | XR_ITS ---
XR chest 2V DATE: 05/27/2020 15:34 INDICATION: Covid-positive in February 2020. Pleural effusion. TECHNIQUE: PA and lateral views COMPARISON: 10/19/2019 PA and lateral chest 05/12/2020 CT pulmonary scan FINDINGS: There are persistent patchy infiltrates involving the mid and lower lung zones in particula r, consistent with persistent bilateral pneumonia. No pleural effusion or pulmonary vascular congestion or pneumothorax. Normal heart size. IMPRESSION: Persistent bilateral pulmonary infiltrates Reviewed, dictated and finalized at location B. ORATION PILOT
== END 2020-05-27 15:14 | disposition home or self-care (01) ==
PROVIDERS: PCP Family Medicine; Visit Provider Nurse Practitioner Family
DX: J90 Pleural effusion, not elsewhere classified (principal); R91.8 Other nonspecific abnormal finding of lung field
CPT/HCPCS: 71046

== ENCOUNTER 2020-06-09 08:16 | Outpatient (CLI) | payer OTHER, SELFPAY ==
--- NOTE | ~2020-06-09 | XR_ITS ---
EXAMINATION: XR chest 2V EXAM DATE: 06/09/2020 08:47 INDICATION: R91.8 - Other nonspecific abnormal finding of lung field. TECHNIQUE: Frontal and lateral projections of the chest obtained and reviewed. Comparison is made to prior examination from 05/27/2020, 09/22/2019. Correlation was made with CT chest examinations from and April 2020. FINDINGS: Patchy bilateral reticular opacities not appreciably changed compared to prior study. Coul d be chronic sequela from COVID pneumonia, interstitial lung disease, correlating to prior chest CT s cans, and since patient had a normal chest x-ray in September of last year. This is unchanged compared to . Cardiomediastinal silhouette is normal. There is no pneumothorax suspected. There are no pleural effu sions. There are mild bony degenerative changes. IMPRESSION: Moderate amount of bilateral reticular opacities, appearance suggest sequela from COVID p neumonia, chronic interstitial lung disease. Reviewed, dictated and finalized at location A. ICER COIN MACHINES IMPRESSION: Moderate amount of bilateral reticular opacities, appearance sugges t sequela from COVID pneumonia, chronic interstitial lung disease.
[2020-06-09 08:50] LABS: Hematocrit 39.1 % (42.0-52.0); Hemoglobin 12.8 g/dL (14.0-18.0); Mean Corpuscular HGB Conc 32.7 g/dl (32-36); Mean Corpuscular Hemoglobin 29.1 pg (26-34); Mean Corpuscular Volume 88.9 fl (80-100); Mean Platelet Volume 10.9 fl (7.4-10.4); Platelet Count Result 253 k/mm3 (150-375); Red Cell Distribution Width 13.8 % (11.5-14.5); White Blood Count 7.7 K/mm3 (4.5-10.0)
[2020-06-09 09:07] LABS: Iron 82 ug/dL (49-181)
[2020-06-09 09:16] LABS: Percent Iron Saturation 25 % (20-50)
== END 2020-06-09 08:17 | disposition home or self-care (01) ==
PROVIDERS: PCP Family Medicine; Visit Provider Physician Assistant Medical
DX: R91.8 Other nonspecific abnormal finding of lung field (principal); D64.9 Anemia, unspecified
CPT/HCPCS: 36415; 71046; 83540; 83550; 85027

== ENCOUNTER 2020-07-25 07:30 | Outpatient (CLI) | payer OTHER, SELFPAY ==
[2020-07-25 08:53] LABS: Alanine Aminotransferase 23 U/L (4-50); Albumin Level 4.6 g/dL (3.5-5.1); Alkaline Phosphatase 52 U/L (38-126); Anion Gap 3 mmol/L (8-16); Aspartate Amino Transferase 22 U/L (17-59); Bilirubin,Total 0.3 mg/dL (0.2-1.3); Blood Urea Nitrogen 22 mg/dL (9-20); Calcium 10.3 mg/dL (8.4-10.2); Carbon Dioxide 32 mmol/L (22-30); Chloride 105 mmol/L (98-107); Cholesterol 186 mg/dL (0-200); Creatine Kinase 74 U/L (55-170); Estimated Glomerular Filt Rate > 60; Glucose 149 mg/dL (75-110); HDL Direct 52 mg/dL; Potassium 4.6 mmol/L (3.4-5.0); Sodium 140 mmol/L (137-145); Triglycerides 152 mg/dL (<150)
[2020-07-25 09:04] LABS: LDL Cholesterol Direct 89 mg/dL
== END 2020-07-25 07:31 | disposition home or self-care (01) ==
PROVIDERS: PCP Family Medicine
DX: E78.2 Mixed hyperlipidemia (principal)
CPT/HCPCS: 36415; 80053; 80061; 82550

== ENCOUNTER 2020-07-31 15:50 | Outpatient (CLI) | payer OTHER, SELFPAY ==
[2020-07-31 16:08] LABS: Hematocrit 42.2 % (42.0-52.0); Hemoglobin 13.9 g/dL (14.0-18.0); Mean Corpuscular HGB Conc 32.9 g/dl (32-36); Mean Corpuscular Hemoglobin 29.7 pg (26-34); Mean Corpuscular Volume 90.2 fl (80-100); Mean Platelet Volume 10.3 fl (7.4-10.4); Platelet Count Result 232 k/mm3 (150-375); Red Blood Count 4.68 M/mm3 (4.6-6.20); White Blood Count 7.2 K/mm3 (4.5-10.0)
[2020-07-31 16:21] LABS: INR 0.9; Prothrombin Time 13.2 Seconds (11.1-14.7)
[2020-07-31 16:22] LABS: Partial Thromboplastin Time 29.7 SECONDS (22.3-36.8)
== END 2020-07-31 15:51 | disposition home or self-care (01) ==
PROVIDERS: PCP Family Medicine; Visit Provider Specialist
DX: R94.39 Abnormal result of other cardiovascular function study (principal)
CPT/HCPCS: 36415; 85027; 85610; 85730

== ENCOUNTER 2020-10-02 14:35 | Outpatient (CLI) | payer OTHER, SELFPAY ==
--- NOTE | 2020-10-02 17:11 | P.PCNPFT_ITS ---
PFT Procedure Performed PFT Procedure Performed Spirometry with Pre/Post Bronchodilator Plethysmography (Lung Vol) Diffusing Cap (DLCO) Flow Vol Loop PFT Interpretation This is a pulmonary function test with pre and post-bronchodilator spirometry, plethysmography and diffusing capacity. The test was performed and results interpreted in accordance with the 2019 and 2005 ATS/ERS Task Force guidelines respectively using the Global Lung Function Initiative-2012 reference equations. Patient demonstrated good effort and cooperation. Reproducibility criteria were met. The quality of the pre bronchodilator spirometry maneuver was Grade B and post bronchodilator spirometry maneuver was Grade B. Findings: Spirometry: The contour of the inspiratory and expiratory flow tracing are normal. The pre bronchodilator FVC is 3.62 L, 77% predicted. The pre bronchodilator FEV1 is 3.15 L, 87% predicted. The FEV1: FVC ratio was 87%. The post bronchodilator FVC is 3.58 L, representing 1% decrease. The post bronchodilator FEV1 is 3.09 L, representing a 2% decreased. Plethysmography: The total lung capacity is 4.39 L, 63% predicted. The functional residual capacity is 2.14 L, 59% predicted. The residual volume is 0.65 L, 29% predicted. Diffusing capacity: The absolute diffusion capacity is 16.3, 57% predicted. The diffusing capacity corrected for alveolar volume is 3.79, 89% predicted. Impression: There is a mild restrictive ventilatory abnormality with a normal FEV1. The spirometry is normal without evidence of an obstructive abnormality. There is no significant improvement after inhaling a single dose of albuterol. The absolute diffusing capacity is moderately decreased and normalizes when cor rected for alveolar volume. There are no prior studies for comparison
== END 2020-10-02 14:36 | disposition home or self-care (01) ==
LOC: ANHPFT 14:36
PROVIDERS: PCP Family Medicine; Visit Provider Family Medicine
DX: R06.02 Shortness of breath (principal); J84.9 Interstitial pulmonary disease, unspecified
CPT/HCPCS: 94060; 94726; 94729

== ENCOUNTER 2020-12-12 07:40 | Outpatient (CLI) | payer OTHER, SELFPAY ==
[2020-12-12 08:38] LABS: Prostate Specific Antigen 0.8 ng/mL (< OR = 4.0)
== END 2020-12-12 07:41 | disposition home or self-care (01) ==
LOC: ANHLAB 07:43
PROVIDERS: PCP Family Medicine; Visit Provider Family Medicine
DX: Z12.5 Encounter for screening for malignant neoplasm of prostate (principal)
CPT/HCPCS: 36415; 84153; G0103

== ENCOUNTER 2021-07-24 07:53 | Outpatient (CLI) | payer OTHER, SELFPAY ==
[2021-07-24 08:44] LABS: Alanine Aminotransferase 55 U/L (4-50); Albumin Level 4.7 g/dL (3.5-5.1); Alkaline Phosphatase 58 U/L (38-126); Anion Gap 10 mmol/L (8-16); Aspartate Amino Transferase 53 U/L (17-59); Bilirubin,Total 0.5 mg/dL (0.2-1.3); Blood Urea Nitrogen 18 mg/dL (9-20); Calcium 9.5 mg/dL (8.4-10.2); Carbon Dioxide 29 mmol/L (22-30); Chloride 102 mmol/L (98-107); Cholesterol 176 mg/dL (0-200); Creatine Kinase 216 U/L (55-170); Estimated Glomerular Filt Rate > 60; Glucose 156 mg/dL (65-110); HDL Direct 38 mg/dL; Potassium 4.3 mmol/L (3.4-5.0); Sodium 141 mmol/L (137-145); Triglycerides 155 mg/dL (<150)
[2021-07-24 08:55] LABS: LDL Cholesterol Direct 89 mg/dL
== END 2021-07-24 07:54 | disposition home or self-care (01) ==
PROVIDERS: PCP Family Medicine; Visit Provider Nurse Practitioner Family
DX: E78.2 Mixed hyperlipidemia (principal); I25.10 Atherosclerotic heart disease of native coronary artery without angina pectoris; D64.9 Anemia, unspecified
CPT/HCPCS: 36415; 80053; 80061; 82550

== ENCOUNTER 2021-11-20 07:14 | Outpatient (CLI) | payer OTHER, SELFPAY ==
[2021-11-20 08:08] LABS: Alanine Aminotransferase 47 U/L (6-50); Albumin Level 4.7 g/dL (3.5-5.1); Alkaline Phosphatase 63 U/L (38-126); Aspartate Amino Transferase 31 U/L (17-59); Bilirubin,Total 0.4 mg/dL (0.2-1.3); Cholesterol 228 mg/dL (0-200); Creatine Kinase 124 U/L (55-170); HDL Direct 47 mg/dL; Triglycerides 159 mg/dL (<150)
[2021-11-20 08:19] LABS: LDL Cholesterol Direct 117 mg/dL
== END 2021-11-20 07:15 | disposition home or self-care (01) ==
LOC: ANHLAB 07:16
PROVIDERS: PCP Family Medicine; Visit Provider Family Medicine
DX: R74.8 Abnormal levels of other serum enzymes (principal); E78.2 Mixed hyperlipidemia
CPT/HCPCS: 36415; 80061; 80076; 82550

== ENCOUNTER 2022-12-15 09:51 | Emergency (ER) | payer OTHER, SELFPAY ==
[2022-12-15 10:04] VITALS: BP 139/89; PULSE 63; RESP 16; TEMP 36.3; O2SAT 98
--- NOTE | 2022-12-15 10:06 | ED.EYEPROB ---
HPI - Eye Problem General Chief complaint: Eye Problems Stated complaint: EYE REDNESS/SWELLING Time Seen by Provider: 12/15/22 10:06 Source: patient Mode of arrival: ambulatory Limitations: no limitations History of Present Illness HPI Narrative: 62 yo M presents with c/o redness, swelling, pain to L lower eyelid. Symptoms for 1 day. Pt states has been working outside, sweating and rubbing eyes. Wear eyeglasses but no contacts. No vision changes. All systems reviewed and negative except as noted above. Related Data Allergies Allergy/AdvReac Type Severity Reaction Status Date / Time Sulfa (Sulfonamide Allergy Unknown Rash Verified 12/15/22 10:01 Antibiotics) Review of Systems Review of Systems: CONSTITUTIONAL: Denies fever, chills, or sweats. EYES: Denies visual changes, redness, or discharge. reports redness, pain, swelling to L lower eyelid ENT: Denies rhinorrhea, congestion, sore throat, or otalgia. CARDIOVASCULAR: Denies chest pain, palpitations, or edema. RESPIRATORY: Denies cough or dyspnea. GASTROINTESTINAL: Denies abdominal pain, nausea, vomiting, or diarrhea. GENITOURINARY: Denies dysuria or hematuria. SKIN: Denies rash or itching. MUSCULOSKELETAL: Denies back pain, joint pain, or myalgia. NEUROLOGIC: Denies headache, numbness, or weakness. PSYCHIATRIC: Denies anxiety or depression. All other systems reviewed are negative, except as documented in HPI. [facility] Past Medical History Medical History BMI 23.0-23.9, adult BMI 24.0-24.9, adult BMI 25.0-25.9,adult BMI 26.0-26.9,adult Chest pain at rest Cough COVID-19 (~03/26/20) Elevated liver enzymes Encounter for wellness examination in adult Fatty liver disease, nonalcoholic Gastro-esophageal reflux Hyperlipidemia, unspecified Hypertension Insomnia Interstitial lung disease Left hip pain Nasal congestion Post-COVID syndrome Renal cyst Shortness of Breath Type 2 diabetes mellitus without complication, without long-term current use of insulin Surgical History Surgical History History of sinus surgery History of tonsillectomy Family History Family History Father Carcinoma of colon Mother Cancer Diabetes mellitus Sibling No problems noted. Other Family history of pancreatic cancer Social History Social History Social History: Surrogate decision maker: Rebecca Hollingsworth, . Code status: Full code. Smoking packs per day: 2 Smoking cigarettes per day: 40.0 Years smoked: 20 Smoking pack-years: 40.00 Smoking status: Former smoker Tobacco type: cigarettes Second hand tobacco smoke exposure: No Alcohol intake: former Substance use: never Substance use type: does not use Living arrangements: with family Additional living arrangements comments: Lives in [place] with his . Occupation/Education: occupation Additional occupation/education comments: route sales driver. Gender identity (if verbalized by the patient): Male Sexual Orientation (if Verbalized by the Patient): Straight or Heterosexual Spiritual care concerns: No Comments At time of signature, agree with nursing past medical, surgical, social and family history. There is no relevant family history pertinent to the presenting complaint. Exam Narrative: GENERAL: This is a well-nourished, well-developed patient, in no apparent distress. HEAD: normocephalic, atraumatic. EYES: PERRL. Sclera clear/white. Vision is grossly intact. erythema, swelling to L lower eyelid with pustule to medial aspect. tender on palpation. EARS: External ears normal NOSE: External nose normal NECK: Neck supple, non-tender without lymphadenopathy, masses or thyromegaly. CARDIOVASCULAR: Regular rate and
== END 2022-12-15 10:18 | disposition home or self-care (01) ==
PROVIDERS: Emergency Provider Nurse Practitioner Family; PCP Family Medicine
DX: H00.015 Hordeolum externum left lower eyelid (principal); Z87.891 Personal history of nicotine dependence; K76.0 Fatty (change of) liver, not elsewhere classified; K21.9 Gastro-esophageal reflux disease without esophagitis; E78.5 Hyperlipidemia, unspecified; I10 Essential (primary) hypertension; J84.9 Interstitial pulmonary disease, unspecified; E11.9 Type 2 diabetes mellitus without complications; Z86.16 Personal history of COVID-19
CPT/HCPCS: 99213; G0463

== ENCOUNTER 2022-12-31 08:12 | Outpatient (CLI) | payer OTHER, SELFPAY ==
[2022-12-31 08:41] LABS: Alanine Aminotransferase 66 U/L (6-50); Albumin Level 4.9 g/dL (3.5-5.1); Alkaline Phosphatase 62 U/L (38-126); Aspartate Amino Transferase 42 U/L (17-59); Bilirubin,Total 0.6 mg/dL (0.2-1.3); Cholesterol 191 mg/dL (0-200); HDL Direct 41 mg/dL; Triglycerides 172 mg/dL (<150)
[2022-12-31 08:47] LABS: Hemoglobin 14.2 g/dL (14.0-18.0); Mean Corpuscular HGB Conc 32.3 g/dl (32-36); Mean Platelet Volume 10.8 fl (7.4-10.4); Platelet Count Result 244 k/mm3 (150-375); Red Blood Count 4.73 M/mm3 (4.6-6.20); White Blood Count 7.4 K/mm3 (4.5-10.0)
[2022-12-31 08:53] LABS: LDL Cholesterol Direct 104 mg/dL
[2022-12-31 09:07] LABS: Iron 73 ug/dL (49-181)
[2022-12-31 09:11] LABS: Hemoglobin A1C 7.7 % (<5.7)
[2022-12-31 09:15] LABS: Microalbumin Urine Random 7.7 mg/L (0-16.7)
[2022-12-31 09:17] LABS: Percent Iron Saturation 19 % (20-50)
[2022-12-31 09:19] LABS: Creatinine Urine 192.3 mg/dL
== END 2022-12-31 08:13 | disposition home or self-care (01) ==
PROVIDERS: PCP Family Medicine; Visit Provider Family Medicine
DX: D50.9 Iron deficiency anemia, unspecified (principal); Z12.5 Encounter for screening for malignant neoplasm of prostate; E78.2 Mixed hyperlipidemia; Z13.220 Encounter for screening for lipoid disorders; E11.9 Type 2 diabetes mellitus without complications
CPT/HCPCS: 36415; 80061; 80076; 82043; 83036; 83540; 83550; 84153; 85027; G0103

== ENCOUNTER 2023-02-16 05:52 | Day surgery (SDC) | payer OTHER, SELFPAY ==
--- NOTE | 2023-02-15 15:23 | PM.HPGS ---
History of Present Illness History of Present Illness Consent: Risks, benefits, and alternatives have been discussed and questions answered. Patient agrees to proceed with procedure. Chief complaint: History of Colon Polyps Narrative: Rosey Hollingsworth is a 62 year old male Referred for colon cancer screening. About 5 years ago he had a polyp removed very Review of Systems Review of Systems: All systems reviewed & are unremarkable except as noted in HPI and below PMFSH Past Medical History Medical History BMI 23.0-23.9, adult BMI 24.0-24.9, adult BMI 25.0-25.9,adult BMI 26.0-26.9,adult Chest pain at rest Cough COVID-19 (~03/26/20) Elevated liver enzymes Encounter for wellness examination in adult Fatty liver disease, nonalcoholic Gastro-esophageal reflux Hyperlipidemia, unspecified Hypertension Insomnia Interstitial lung disease Left hip pain Nasal congestion Post-COVID syndrome Renal cyst Shortness of Breath Type 2 diabetes mellitus without complication, without long-term current use of insulin Surgical History Surgical History History of sinus surgery History of tonsillectomy Family History Family History Father Carcinoma of colon Mother Cancer Diabetes mellitus Sibling No problems noted. Other Family history of pancreatic cancer Social History Social History Social History: Surrogate decision maker: Rebecca Hollingsworth, . Code status: Full code. Smoking packs per day: 2 Smoking cigarettes per day: 40.0 Years smoked: 20 Smoking pack-years: 40.00 Smoking status: Former smoker Tobacco type: cigarettes Second hand tobacco smoke exposure: No Alcohol intake: former Substance use: never Substance use type: does not use Lack of Transportation: No Lack of Food: Never True Current Housing: I Have Housing Concerned About Future Housing: No Difficulty Paying Gas/Electric Bills: No Difficulty Paying for Meds: No Currently Unemployed: No Education: High School Diploma/GED Difficulty w/ Childcare or Family Care: No Living arrangements: with family Additional living arrangements comments: Lives in [place] with his . 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 Gender identity (if verbalized by the patient): Male Sexual Orientation (if Verbalized by the Patient): Straight or Heterosexual Spiritual care concerns: No Meds Home Medications and Allergies Home Medications Medication Instructions Recorded Confirmed Type albuterol sulfate 90 mcg/actuation 1 inh inhalation Q4H PRN shortness 08/21/20 02/16/23 Rx aerosol inhaler (ProAir HFA) of breath or wheezing #8.5 grams pantoprazole 40 mg tablet,delayed 40 mg PO QAM #30 tabs 08/21/20 02/16/23 Rx release simvastatin 40 mg tablet 40 mg PO DAILY #90 tabs 12/16/22 02/16/23 Rx diclofenac sodium 75 mg 75 mg PO BID #60 tabs 01/01/23 02/16/23 Rx tablet,delayed release trazodone 50 mg tablet 50 mg PO .qhs #90 tabs 01/02/23 02/16/23 Rx aspirin 81 mg tablet 81 mg PO DAILY 01/30/23 02/16/23 History ferrous sulfate 325 mg (65 mg 325 mg PO DAILY 01/30/23 02/16/23 History iron) tablet (Iron (ferrous sulfate)) empagliflozin 12.5 mg-metformin ER 1 tablet PO DAILY #90 ea 02/13/23 02/16/23 Rx 1,000 mg tablet,extended rel 24 hr (Synjardy XR) Allergies Allergy/AdvReac Type Severity Reaction Status Date / Time Sulfa (Sulfonamide Allergy Unknown Rash Verified 02/16/23 06:17 Antibiotics) Exam Resp: Auscultation: clear to auscultation bilaterally Cardio: Rate: regular rate Rhythm: regular rhythm GI: GI Palp: Yes Soft to palpation and No Tenderness to palpation pr
[2023-02-16 06:25] VITALS: BMI 24.7
[2023-02-16 06:39] VITALS: BP 117/72; PULSE 61; RESP 18; TEMP 36.7; O2SAT 98
[2023-02-16 06:43] LABS: Glucose Point of Care 155 mg/dl (65-105)
--- NOTE | 2023-02-16 07:04 | WPDANESEPPF ---
Anes - Initial Pre Proc Eval Procedure: Operation Date: 02/16/23 08:00 Proposed Procedures p Screening Colonoscopy - Arthur Power MD Date/Time: 02/16/23 07:04 Surgeon: Arthur Power MD Pre Op Diagnosis: History of Colon Polyps Patient Data Age: 62 Gender: M Height: 1.78 m Weight: 78.1 kg Last Vital Signs Temp 36.7 C 02/16/23 06:39 Pulse 61 02/16/23 06:39 Resp 18 02/16/23 06:39 BP 117/72 02/16/23 06:39 Pulse Ox 98 02/16/23 06:39 O2 Del Method Room Air 02/16/23 06:39 Allergies Allergy/AdvReac Type Severity Reaction Status Date / Time Sulfa (Sulfonamide Allergy Unknown Rash Verified 02/16/23 06:17 Antibiotics) Home Medications Medication Instructions Recorded Confirmed Type albuterol sulfate 90 mcg/actuation 1 inh inhalation Q4H PRN shortness 08/21/20 02/16/23 Rx aerosol inhaler (ProAir HFA) of breath or wheezing #8.5 grams pantoprazole 40 mg tablet,delayed 40 mg PO QAM #30 tabs 08/21/20 02/16/23 Rx release simvastatin 40 mg tablet 40 mg PO DAILY #90 tabs 12/16/22 02/16/23 Rx diclofenac sodium 75 mg 75 mg PO BID #60 tabs 01/01/23 02/16/23 Rx tablet,delayed release trazodone 50 mg tablet 50 mg PO .qhs #90 tabs 01/02/23 02/16/23 Rx aspirin 81 mg tablet 81 mg PO DAILY 01/30/23 02/16/23 History ferrous sulfate 325 mg (65 mg 325 mg PO DAILY 01/30/23 02/16/23 History iron) tablet (Iron (ferrous sulfate)) empagliflozin 12.5 mg-metformin ER 1 tablet PO DAILY #90 ea 02/13/23 02/16/23 Rx 1,000 mg tablet,extended rel 24 hr (Synjardy XR) Laboratory Tests 02/16/23 06:36 POC Capillary Glucose 155 H mg/dl (65-105) Patient hx anesthesia problems: none Family hx anesthesia problems: none Results Review: All pre-operative results and documents have been reviewed as part of the pre-operative evaluation. [facility] Past Medical History Medical History (Updated 02/16/23 @ 07:13 by Telly Bullock DO) BMI 24.0-24.9, adult Cough COVID-19 (~03/26/20) Diabetes type 2, controlled Elevated liver enzymes Encounter for wellness examination in adult Fatty liver Fatty liver disease, nonalcoholic Gastro-esophageal reflux History of pulmonary embolism Hyperlipidemia, unspecified Hypertension Insomnia Interstitial lung disease post covid - resolved Left hip pain Nasal congestion Post-COVID syndrome Renal cyst Type 2 diabetes mellitus without complication, without long-term current use of insulin Surgical History Surgical History History of sinus surgery History of tonsillectomy Family History Family History Father Carcinoma of colon Mother Cancer Diabetes mellitus Sibling No problems noted. Other Family history of pancreatic cancer Social History Social History Social History: Surrogate decision maker: Rebecca Hollingsworth, . Code status: Full code. Smoking packs per day: 2 Smoking cigarettes per day: 40.0 Years smoked: 20 Smoking pack-years: 40.00 Smoking status: Former smoker Tobacco type: cigarettes Second hand tobacco smoke exposure: No Alcohol intake: former Substance use: never Substance use type: does not use Lack of Transportation: No Lack of Food: Never True Current Housing: I Have Housing Concerned About Future Housing: No Difficulty Paying Gas/Electric Bills: No Difficulty Paying for Meds: No Currently Unemployed: No Education: High School Diploma/GED Difficulty w/ Childcare or Family Care: No Living arrangements: with family Additional living arrangements comments: Lives in [place] with his . 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 Gender identity (if verbalized by the patient): Male
[2023-02-16] MEDS: LACTATED RINGERS 1,000 ML 150 ML IV CONT (07:14)
[2023-02-16 07:47] VITALS: BP 100/67; PULSE 67; RESP 16; O2SAT 100
[2023-02-16 07:57] VITALS: BP 108/72; PULSE 68; RESP 16; O2SAT 97
[2023-02-16 08:07] VITALS: BP 107/77; PULSE 70; RESP 16; O2SAT 97
--- NOTE | 2023-02-16 11:34 | WPDANESPN ---
Anes - Prog Note Post-Op Date/Time: 02/16/23 11:34 Cardiovascular status: normal Respiratory status: normal Airway patency: baseline Mental status: baseline Post-Op hydration status: normal Vital Signs: Last Vital Signs Temp 36.7 C 02/16/23 06:39 Pulse 70 02/16/23 08:07 Resp 16 02/16/23 08:07 BP 107/77 02/16/23 08:07 Pulse Ox 97 02/16/23 08:07 O2 Del Method Room Air 02/16/23 08:07 Pain Score (VAS): 0 I/O: Intake & Output 02/15/23 02/16/23 02/16/23 23:59 07:59 15:59 Intake Total 350 50 Balance 350 50 02/16/23 06:36 POC Capillary Glucose 155 H Post-procedural complaints: none Patient Feedback: Patient satisfied with anesthetic care. Other Findings: Patient vital signs back to baseline. Patient denies nausea and vomiting. Patient's pain under control. Patient OK for discharge.
== END 2023-02-16 08:23 | disposition home or self-care (01) ==
PROVIDERS: PCP Family Medicine; Visit Provider Internal Medicine Gastroenterology
PROC: 0DJD8ZZ Inspection of Lower Intestinal Tract, Via Natural or Artificial Opening Endoscopic (ICD-10-PCS; CPT 45378; principal; 2023-02-16 08:00)
DX: Z12.11 Encounter for screening for malignant neoplasm of colon (principal); K57.30 Diverticulosis of large intestine without perforation or abscess without bleeding; Z86.010 Personal history of colon polyps
CPT/HCPCS: 45378